=== PATIENT | male | born 1980 | race African-American/Black ===

== ENCOUNTER 2018-06-03 14:00 | Emergency (ER) | payer SELFPAY ==
[~2018-06-03] VITALS: Ht 185.4 cm; Wt 63.8 kg
[~2018-06-03 14:00] MED LIST: BACTRIM,SEPT1 TABLET PO; BACTROBAN OINTM22 GM TP; LORTAB 5-325 M1 EACH PO; NAPROXEN500 MG PO; NORCO 7.5/321 TABLET PO; PEN-VEE K,VEET500 MG PO; TESSALON PERLE100 MG PO; ZANTAC150 MG PO
[2018-06-03] MEDS ORDERED: ROBAXIN750 MG PO (15:27)
[2018-06-03] MEDS ORDERED: LIDODERM 5% P1 PATCH TD (15:27)
[2018-06-03] MEDS ORDERED: VOLTAREN75 MG PO (15:27)
[2018-06-03 16:46] VITALS: BP 111/76
== END 2018-06-03 16:47 | disposition home or self-care (01) ==
LOC: EME 14:00
DX: M54.5 Low back pain (principal); M54.16 Radiculopathy, lumbar region
CPT/HCPCS: 72100; 99281; 99283; J1885